=== PATIENT | male | born 1955 | race Caucasian/White ===

== ENCOUNTER 2020-09-09 20:56 | Emergency (ER) | payer BC ==
[2020-09-09 21:55] VITALS: BP 160/72; PULSE 65
--- NOTE | 2020-09-09 22:19 | EDM.PDOC ---
ED HPI GENERAL MEDICAL PROBLEM - General Chief Complaint: Lower Extremity Injury/Pain Stated Complaint: RIGHT KNEE HURTING Time Seen by Provider: 09/09/20 22:17 Source of Information: Reports: Patient History Limitations: Reports: No Limitations - History of Present Illness INITIAL COMMENTS - FREE TEXT/NARRATIVE: Patient six 5-year-old male presents today for right knee pain. Patient used to get into his pickup truck when he felt a pop in his knee. Since then has had trouble ambulating. He has trouble when he has to put pressure on the leg or flex leg. Patient denies any falls or direct injuries to the knee denies any other associated symptoms of numbness or tingling to the leg. Is not take any medicine for the pain at home. Right Knee Pain Score (Numeric/FACES): 9 - Related Data Allergies Allergy/AdvReac Type Severity Reaction Status Date / Time No Known Allergies Allergy Verified 09/09/20 21:51 Home Meds: Home Meds Metoprolol Succinate [Toprol Xl] 100 mg PO DAILY 01/25/14 [History] hydroCHLOROthiazide [Hydrochlorothiazide] 12.5 mg PO DAILY 01/25/14 [History] Past Medical History Cardiovascular History: Reports: Hypertension - Infectious Disease History Infectious Disease History: Reports: Chicken Pox Social & Family History - Family History Family Medical History: No Pertinent Family History - Tobacco Use Tobacco Use Status *Q: Never Tobacco User - Caffeine Use Caffeine Use: Reports: Coffee - Recreational Drug Use Recreational Drug Use: No Review of Systems - Review of Systems Review Of Systems: See Below Constitutional: Reports: No Symptoms Eyes: Reports: No Symptoms Ears: Reports: No Symptoms Nose: Reports: No Symptoms Mouth/Throat: Reports: No Symptoms Respiratory: Reports: No Symptoms Cardiovascular: Reports: No Symptoms GI/Abdominal: Reports: No Symptoms Genitourinary: Reports: No Symptoms Musculoskeletal: Reports: Leg Pain Skin: Reports: No Symptoms Neurological: Reports: No Symptoms Psychiatric: Reports: No Symptoms ED EXAM, GENERAL - Physical Exam Exam: See Below Exam Limited By: No Limitations General Appearance: Alert, WD/WN, No Apparent Distress Respiratory/Chest: No Respiratory Distress, Lungs Clear Cardiovascular: Normal Peripheral Pulses, Regular Rate, Rhythm GI/Abdominal: Normal Bowel Sounds Extremities: Normal Inspection, Normal Range of Motion. No: Non-Tender (Is to the medial side of the right knee) Neurological: Alert, Oriented. No: Normal Gait Course - Vital Signs Last Recorded V/S: Last Vital Signs Temp 97.9 F 09/09/20 21:51 Pulse 65 09/09/20 21:51 Resp 17 09/09/20 21:51 BP 160/72 H 09/09/20 21:51 Pulse Ox 97 09/09/20 21:51 - Re-Assessments/Exams Free Text/Narrative Re-Assessment/Exam: 09/09/20 23:45 X-ray negative will be discharged home to follow-up as needed. What you are ordering Favio wrap Why you are ordering it Immobilization and pain control How it will benefit patient Immobilization and pain control How long is patient to use it 7 to 10 days Departure - Departure Time of Disposition: 23:46 Disposition: Home, Self-Care 01 Condition: Good Clinical Impression: Right knee sprain - Discharge Information *PRESCRIPTION DRUG MONITORING PROGRAM REVIEWED*: Not Applicable *COPY OF PRESCRIPTION DRUG MONITORING REPORT IN PATIENT LAURA: Not Applicable Instructions: Knee Sprain, Adult, [id number] Referrals: Clarisse Harrington DO [Primary Care Provider] - Forms: ED Department Discharge Additional Instructions: The following information is given to patients seen in the emergency department who are being discharged to home. This information is to outline your options for follow-up care. We provide all patients seen in our emergency department with a follow-up referral. The need for follow-up, as well as the timing and circumstances, are variable depending upon the specifics of your emergency department visit. If you don't have a primary care physician on staff, we will provide you with a referral. We always advise you to contact your personal physician following an emergency department visit to inform them of the circumstance of the visit and for follow-up with them and/or the need for any referrals to a consulting specialist. The emergency department will also refer you to a specialist when appropriate. This referral assures that you have the opportunity for follow-up care with a specialist. All of these measure are taken in an effort to provide you with optimal care, which includes your follow-up. Under all circumstances we always encourage you to contact your private physician who remains a resource for coordinating your care. When calling for follow-up care, please make the office aware that this follow-up is from your recent emergency room visit. If for any reason you are refused follow-up, please contact the [facility] Emergency Department at and asked to speak to the emergency department charge nurse. Please follow up with your primary care physician. If you do not have a primary care physician, see below: [facility] [address] [place], [place] [id number] [facility] [address] [place], [place] [id number] You were seen today for knee pain. X-ray did not show any fractures any free fluid. The knee continues to bother you please follow-up to primary care ph ysician as you may require more additional images. You have any other complaints or concerns please return to ED. Sepsis Event Note (ED) - Evaluation Sepsis Screening Result: No Definite Risk - Focused Exam Vital Signs: Vital Signs Temp Pulse Resp BP Pulse Ox 09/09/20 21:51 97.9 F 65 17 160/72 H 97 - Assessment/Plan Plan: Patient is a 65-year-old male presents today for right knee pain after get into his truck. Patient had no direct injuries to be knee. Will obtain x-ray and likely placed in a knee immobilizer and provide crutches and discharged home.
--- NOTE | 2020-09-09 23:39 | CR ---
INDICATION: Pain and difficulty ambulating after hearing a pop from the knee. COMPARISON: Right knee from 04/04/2016 TECHNIQUE: The right knee was examined with AP, lateral, oblique and sunrise views for a total of four views. FINDINGS: There is no sign of fracture or dislocation. The medial and lateral compartments are normal in height. There is no sign of a joint effusion. No soft tissue abnormality is seen. Again seen is moderate ossification at the insertion of the quadriceps tendon on the anterior superior patella. No degenerative changes are seen. IMPRESSION: No sign of acute osseous injury. Stable moderate anterior superior patellar osteophyte at the quadriceps tendon insertion. Dictated by Boom Valenzuela MD @ 09/09/2020 11:37:[address] Boom Valenzuela @ Sep 09 2020 11:37PM
== END 2020-09-09 23:57 | disposition home or self-care (01) ==
LOC: MW.ED 20:56
DX: S83.91XA Sprain of unspecified site of right knee, initial encounter (principal); X50.9XXA Other and unspecified overexertion or strenuous movements or postures, initial encounter
CPT/HCPCS: 73564-26-RT; 73564-RT; 99283-25

== ENCOUNTER 2020-11-24 15:50 | Emergency (ER) | payer BC ==
--- NOTE | 2020-11-24 16:08 | EDM.PDOC ---
ED HPI GENERAL MEDICAL PROBLEM - General Chief Complaint: Syncope Stated Complaint: COVID Time Seen by Provider: 11/24/20 15:59 - History of Present Illness INITIAL COMMENTS - FREE TEXT/NARRATIVE: History of present illness: [] Patient who is up and about in in the same state of weakness he has been in since diagnosed with COVID-19 on the fourth of this month suddenly collapsed. Apparently he passed out and fell to the ground. He denies injury. He does not feel any worse than he had in the last few days right now. The patient has no prior syncopal episode. He had no warning. Review of systems: As per history of present illness and below otherwise all systems reviewed and negative. Past medical history: As per history of present illness and as reviewed below otherwise noncontributory. Surgical history: As per history of present illness and as reviewed below otherwise noncontributory. Social history: No reported history of drug or alcohol abuse. Family history: As per history of present illness and as reviewed below otherwise noncontributory. Physical exam: Constitutional - well developed, well-nourished and in no acute distress HEENT - normocephalic, no evidence of trauma - external nose and mouth normal - no mass in neck and no JVD - mucosae moist EYES - full EOM, PERRL, no icterus - no evidence of inflammation, injection, or drainage Respiratory - no respiratory distress, equal bilateral expansion, lungs clear to auscultation and no abnormal lung sounds Cardiovascular - Regular Rhythm with S1 and S2 appreciated and no murmur, gallop or rub. GI - abdomen soft without distension or organomegaly - normal bowel sounds - no guard or rebound Musculoskeletal no gross deformity of long bones or joints - no tenderness, swelling or edema Neurologic - Alert and oriented times four - CN II-XII grossly intact - motor sensory and coordination symmetrically normal Psychiatric - appropriate mood and affect with normal thought content Hematologic - No petechiae or purpura - mucosa appropriate color and sclera not pale - normal nail bed color and refill Integument - no rash or evidence of trauma - normal turgor Diagnostics: [] Therapeutics: [] Impression: [] Plan: [] Definitive disposition and diagnosis as appropriate pending reevaluation and review of above. - Related Data Allergies Allergy/AdvReac Type Severity Reaction Status Date / Time No Known Allergies Allergy Verified 11/24/20 15:56 Home Meds: Home Meds Metoprolol Succinate [Toprol Xl] 100 mg PO DAILY 01/25/14 [History] hydroCHLOROthiazide [Hydrochlorothiazide] 12.5 mg PO DAILY 01/25/14 [History] Past Medical History Cardiovascular History: Reports: Hypertension - Infectious Disease History Infectious Disease History: Reports: Chicken Pox Social & Family History - Family History Family Medical History: No Pertinent Family History - Tobacco Use Tobacco Use Status *Q: Never Tobacco User - Caffeine Use Caffeine Use: Reports: Coffee - Recreational Drug Use Recreational Drug Use: No ED ROS GENERAL - Review of Systems Review Of Systems: Comprehensive ROS is negative, except as noted in HPI. ED EXAM, GENERAL - Physical Exam Exam: See Below Free Text/Narrative:: My physical exam is in the HPI #1 Interpretation EKG Interpretation Comments: EKG done 11/24/2020 at 4:31 PM shows a sinus rhythm with a heart rate of 82 MI interval 176 QT duration 473 axis -32 QRS shows Q waves in inferior leads and anterior leads. No prior for comparison impression no current acute ischemia Course - Vital Signs Last Recorded V/S: Last Vital Signs Temp 37.1 C 11/24/20 15:56 Pulse 79 11/24/20 16:59 Resp 16 11/24/20 16:59 BP 124/79 11/24/20 16:59 Pulse Ox 98 11/24/20 16:59 - Orders/Labs/Meds Orders: Active Orders 24 hr Category Date Time Status Sodium Chloride 0.9% [Saline Flush] Med 11/24/20 16:10 Active 10 ml FLUSH ASDIRECTED PRN Sodium Chloride 0.9% [Saline Flush] Med 11/24/20 16:10 Active 2.5 ml FLUSH ASDIRECTED PRN Saline Lock Insert [OM.PC] Stat Oth 11/24/20 16:10 Ordered Medication Orders Sodium Chloride (Sodium Chloride 0.9% 10 Ml Syringe) 10 ml FLUSH ASDIRECTED PRN PRN Reason: Keep Vein Open Last Admin: 11/24/20 16:58 Dose: 10 ml Documented by: LILLIANA Sodium Chloride (Sodium Chloride 0.9% 2.5 Ml Syringe) 2.5 ml FLUSH ASDIRECTED PRN PRN Reason: Keep Vein Open Last Admin: 11/24/20 16:58 Dose: 2.5 ml Documented by: LILLAINA Labs: Laboratory Tests 11/24/20 11/24/20 Range/Units 16:30 16:30 WBC 3.88 L (4.0-11.0) K/uL RBC 4.89 (4.50-5.90) M/uL Hgb 14.0 (13.0-17.0) g/dL Hct 41.6 (38.0-50.0) % MCV 85.1 (80.0-98.0) fL MCH 28.6 (27.0-32.0) pg MCHC 33.7 (31.0-37.0) g/dL RDW Std Deviation 43.3 (28.0-62.0) fl RDW Coeff of Hill 14 (11.0-15.0) % Plt Count 144 L (150-400) K/uL MPV 10.20 (7.40-12.00) fL Neut % (Auto) 59.5 (48.0-80.0) % Lymph % (Auto) 30.7 (16.0-40.0) % [place] % (Auto) 9.5 (0.0-15.0) % Eos % (Auto) 0.3 (0.0-7.0) % Baso % (Auto) 0.0 (0.0-1.5) % Neut # (Auto) 2.3 (1.4-5.7) K/uL Lymph # (Auto) 1.2 (0.6-2.4) K/uL [place] # (Auto) 0.4 (0.0-0.8) K/uL Eos # (Auto) 0.0 (0.0-0.7) K/uL Baso # (Auto) 0.0 (0.0-0.1) K/uL Nucleated RBC % 0.0 /100WBC Nucleated RBCs # 0 K/uL Sodium 135 L (136-148) mmol/L Potassium 4.0 (3.5-5.1) mmol/L Chloride 98 (98-107) mmol/L Carbon Dioxide 25.2 (21.0-32.0) mmol/L BUN 20 H (7.0-18.0) mg/dL Creatinine 1.1 (0.8-1.3) mg/dL Est Cr Clr Drug Dosing 68.74 mL/min Estimated GFR (MDRD) > 60.0 ml/min Glucose 128 H (74-106) mg/dL Calcium 7.6 L (8.5-10.1) mg/dL Total Bilirubin 1.4 H (0.2-1.0) mg/dL AST 95 H (15-37) IU/L ALT 152 H (14-63) IU/L Alkaline Phosphatase 80 (46-116) U/L Troponin I < 0.050 (0.000-0.056) ng/mL Total Protein 6.6 (6.4-8.2) g/dL Albumin 3.3 L (3.4-5.0) g/dL Globulin 3.3 (2.6-4.0) g/dL Albumin/Globulin Ratio 1.0 (0.9-1.6) Meds: Medications Generic Name Dose Route Start Last Admin Trade Name Freq PRN Reason Stop Dose Admin Sodium Chloride 10 ml 11/24/20 16:10 11/24/20 16:58 Sodium Chloride 0.9% 10 Ml Syringe FLUSH 10 ml ASDIRECTED PRN Administration Keep Vein Open Sodium Chloride 2.5 ml 11/24/20 16:10 11/24/20 16:58 Sodium Chloride 0.9% 2.5 Ml Syringe FLUSH 2.5 ml ASDIRECTED PRN Administration Keep Vein Open Discontinued Medications Generic Name Dose Route Start Last Admin Trade Name Freq PRN Reason Stop Dose Admin Sodium Chloride 1,000 mls @ 1,000 mls/hr 11/24/20 16:29 11/24/20 16:58 Normal Saline IV 11/24/20 17:28 1,000 mls/hr .Bolus ONE Administration Departure - Departure Time of Disposition: 17:32 Disposition: Home, Self-Care 01 Condition: Good Clinical Impression: COVID-19, Dehydration, Syncope and collapse - Discharge Information Instructions: COVID-19 Vaccine Information, COVID-19 Frequently Asked Questions, 10 Things You Can Do to Manage Your COVID-19 Symptoms at Home - [facility] (09/01/2020), COVID-19: Quarantine vs. Isolation - [facility] (02/03/2020), Syncope, COVID-19: What to Do If You Are Sick- [facility] (05/03/2020) Forms: ED Department Discharge Additional Instructions: Make an appointment now with the primary care clinic surgical area Zio patch interpreted in 2 weeks. Return if worse Drink plenty of fluids [facility] [address] [place] [address] [facility] [address] [place] [address] The following information is given to patients seen in the emergency department who are being discharged to home. This information is to outline your options for follow-up care. We provide all patients seen in our emergency department with a follow-up referral. The need for follow-up, as well as the timing and circumstances, are variable depending upon the specifics of your emergency department visit. If you don't have a primary care physician on staff, we will provide you with a referral. We always advise you to contact your personal physician following an emergency department visit to inform them of the circumstance of the visit and for follow-up with them and/or the need for any referrals to a consulting specialist. The emergency department will also refer you to a specialist when appropriate. This referral assures that you have the opportunity for follow-up care with a specialist. All of these measure are taken in an effort to provide you with optimal care, which includes your follow-up. Under all circumstances we always encourage you to contact your private physician who remains a resource for coordinating your care. When calling for follow-up care, please make the office aware that this follow-up is from your recent emergency room visit. If for any reason you are refused follow-up, please contact the [facility] Emergency Department at and asked to speak to the emergency department charge nurse. Sepsis Event Note (ED) - Focused Exam Vital Signs: Vital Signs Temp Pulse Resp BP Pulse Ox 11/24/20 16:59 79 16 124/79 98 11/24/20 15:56 37.1 C 81 18 123/80 96 - My Orders Last 24 Hours: My Active Orders 11/24/20 16:10 Sodium Chloride 0.9% [Saline Flush] 10 ml FLUSH ASDIRECTED PRN Sodium Chloride 0.9% [Saline Flush] 2.5 ml FLUSH ASDIRECTED PRN Saline Lock Insert [OM.PC] Stat - Assessment/Plan Last 24 Hours: My Active Orders 11/24/20 16:10 Sodium Chloride 0.9% [Saline Flush] 10 ml FLUSH ASDIRECTED PRN Sodium Chloride 0.9% [Saline Flush] 2.5 ml FLUSH ASDIRECTED PRN Saline Lock Insert [OM.PC] Stat
[2020-11-24] MEDS ORDERED: Sodium Chloride 0.9% 2.5 ML Syringe FLUSH PRN (16:10)
[2020-11-24] MEDS ORDERED: Sodium Chloride 0.9% 10 ML Syringe FLUSH PRN (16:10)
[2020-11-24] MEDS ORDERED: Sodium Chloride 0.9% 1,000 ML IV ONE (16:29)
[2020-11-24 17:24] LABS: BLOOD UREA NITROGEN,BUN 20 mg/dL (7.0-18.0); CARBON DIOXIDE,CO2 25.2 mmol/L (21.0-32.0); CHLORIDE,CL 98 mmol/L (98-107); GLUCOSE RANDOM 128 mg/dL (74-106); SODIUM,NA 135 mmol/L (136-148)
[2020-11-24 17:45] VITALS: BP 98/68; PULSE 90
== END 2020-11-24 18:31 | disposition home or self-care (01) ==
LOC: MW.ED 15:50
DX: U07.1 COVID-19 (principal); R55 Syncope and collapse; E86.0 Dehydration; I10 Essential (primary) hypertension
CPT/HCPCS: 36415; 80053; 84484; 85025; 93005; 99284; J7030